=== PATIENT | male | born 1970 | race Two or more races ===

== ENCOUNTER 2018-09-09 09:29 | Emergency (ER) | payer BC ==
[~2018-09-09] VITALS: Ht 170.2 cm; Wt 88.5 kg
[2018-09-09 09:38] VITALS: BP 152/99
[2018-09-09] MEDS ORDERED: IBUPROFEN 800 MG TAB PO ONE (10:00)
[2018-09-09] MEDS ORDERED: ACETAMINOPHEN/CODEINE#3 (300/30mg) TAB PO ONE (10:30)
== END 2018-09-09 11:01 | disposition home or self-care (01) ==
LOC: ER 09:29
DX: S62.656A Nondisplaced fracture of middle phalanx of right little finger, initial encounter for closed fracture (principal); S62.515A Nondisplaced fracture of proximal phalanx of left thumb, initial encounter for closed fracture; S62.343A Nondisplaced fracture of base of third metacarpal bone, left hand, initial encounter for closed fracture; S52.92XA Unspecified fracture of left forearm, initial encounter for closed fracture; S69.92XA Unspecified injury of left wrist, hand and finger(s), initial encounter; V28.4XXA Motorcycle driver injured in noncollision transport accident in traffic accident, initial encounter; Y93.89 Activity, other specified; Y99.8 Other external cause status; Y92.89 Other specified places as the place of occurrence of the external cause
CPT/HCPCS: 29125; 29130; 73090; 73130